=== PATIENT | female | born 1945 | race Caucasian/White ===

== ENCOUNTER → 2017-07-04 | Outpatient (CLI) | payer OTHER, MEDICARE | LOC: BHFA 08:30 | PROVIDERS: ATTEND Internal Medicine Interventional Cardiology | DX: R06.09 Other forms of dyspnea (principal); I10 Essential (primary) hypertension | CPT/HCPCS: 78452; 93017; A9500 ==

== ENCOUNTER 2017-09-25 01:50 | Emergency (ER) | payer OTHER, MEDICARE ==
[~2017-09-25 01:50] MED LIST: NS 2,000 ML IV ONE; ONDANSETRON 4 MG/2 ML VIAL IVP ONE
[2017-09-25] MEDS ORDERED: fentaNYL 100 MCG/2 ML INJ IVP ONE ×2 (02:15→02:45)
[2017-09-25] MEDS ORDERED: DICYCLOMINE 10 MG CAP PO ONE (03:45)
[2017-09-25] MEDS ORDERED: METOCLOPRAMIDE 10 MG/2 ML VIAL IVP ONE (03:45)
[2017-09-25] MEDS ORDERED: MAG HYDROX/AL HYDROX/SIMETH 30 ML UDCUP PO ONE (05:10)
--- NOTE | 2017-09-25 05:48 | EDPHY ---
H & P Stated Complaint: Upper abdominal pain with nausea Time Seen by Provider: 09/25/17 05:44 HPI/ROS: CHIEF COMPLAINT: Expanding abdominal pain with nausea. HISTORY OF PRESENT ILLNESS: This 72-year-old female certainly felt well at lunchtime and had no problems with respect to lunch or breakfast. However, around 5:00 p.m. she had dinner and did not eat as much as she usually might as she was beginning have some anorexia By 630 she started having some epigastric pain as well as notable nausea. Symptoms slowly escalated through the evening and into bedtim. She was unable to sleep. She came here be due to moderately severe abdominal discomfort of 8/10 located in the epigastrium that was spreading slowly to include her lower abdomen, right equals left. There is no back component to this. Her nausea was so profound that she actually took the a 12.5 mg p.o. dose of Phenergan she had left over from an illness 18 months ago , see below, though it did not help beyond making her sedated. The pain itself is diffuse, expanding, certainly not migrating, and sharp in nature, not pulsatile, nor radiating. Prior history of diverticulitis, perhaps: Approximately 18 months ago she came here to this clinic at the time and was seen for mild bilateral lower quadrant left greater than right abdominal pain and tenderness with a mild leukocytosis. Chart reviewed: As she had diverticulosis seen on prior colonoscopy the clinical diagnosis of diverticulitis was made and she was treated with a combination of Flagyl and Cipro. During that time she was nauseated and thus required Phenergan as due to side effects of the antibiotics. Of note, she did have an ultrasound of the lower pelvis approximately 3 weeks later as ordered by her family physician. She reports this was done as she had ongoing pain despite completing antibiotic therapy and she was worried of ovarian cancer due to the history of breast cancer in her mother and sister. Ultimately this ultrasound showed a normal left ovary, absent right ovary, and a status post hysterectomy. Evidently, it was explained to her that as she was postmenopausal it was not surprising that difficulty finding the right ovary. It had not been surgically removed per the patient's report No abdominal imaging history to speak of except for the above US of Pelvis. She is not known to have any gallstones or aortic aneurysms. She does carry the diagnosis of GERD which she takes daily medication. She notes this is not the similar symptoms. She states that with her GERD she has nausea for she has a backup Phenergan. She has been compliant with medications. No prior EGD. No other abdominal surgery, besides the hysterectomy. She arrives approximately 12:30 a.m. on September 25. On September 23 her son arrived home and was sick with a GI illness consisted of vomiting. However, as he lives in the basement she was unaware of any other symptomatology. She believes he was still somewhat symptomatic on the morning September 24 though evidently was improving. Her meal on the evening of the was left over from that of the September 23 which was check-in with pasta as provided by a shopping trip to [facility]. However, her son did not eat any of this meal REVIEW OF SYSTEMS: Constitutional: No fever, no chills. Eyes: No discharge ENT: No sore throat. Cardiovascular: No chest pain, no palpitations. Respiratory: No cough, shortness of breath, or wheezing. Gastrointestinal: Though nauseated she has not vomited. There has been no diarrhea Genitourinary: No hematuria or frequency. Musculoskeletal: No back pain. Skin: No rashes. Neurological: No headache. 10 point ROS otherwise negative Source: Patient Exam Limitations: No limitations - Medical/Surgical History Hx Asthma: No Hx Chronic Respiratory Disease: No Hx Diabetes: No Hx Cardiac Disease: No Hx Renal Disease: No Hx Cirrhosis: No Hx Alcoholism: No Hx HIV/AIDS: No Hx Splenectomy or Spleen Trauma: No Other PMH: hysterectomy, allergy to unknown item. LAst Allergic reaction that she had to use epi pen for was aprox 5 months ago. - Family History Significant Family History: No pertinent family hx - Social History Smoking Status: Former smoker Alcohol Use: None Drug Use: None - Physical Exam Exam: General Appearance: Alert, skin is warm dry and she is not diaphoretic with good eye contact. However she appears in moderate distress as she appears uncomfortable. Afebrile. Normal phonation. No respiratory distress. Eyes: Pupils equal and round no pallor or injection. No icterus ENT, Mouth: Mucous membranes slightly dry Pharynx without erythema or exudate. TM Clear. Neck: No adenopathy. Supple. No JVD. Trachea in midline. Respiratory: There are no retractions, lungs are clear to auscultation. Chest wall: Nontender to palpation. No crepitus. Cardiovascular: Regular rate and rhythm, without murmur. Abdomen: Soft nontender in the epigastrium hypogastrium however tender in the midline suprapubically in the right lower quadrant. There is no rebound or guarding however. No masses, bowel sounds normal. Femoral pulses equal. Neurological: Ox3. No motor weakness. Sensation intact. Gait nl. Skin: Warm and dry, no rashes. Musculoskeletal: No joint swelling. Extremities: No edema. Homans sign negative. No cords. Psychiatric: Normal affect. Patient is oriented X 3. There is no agitation Constitutional: Initial Vital Signs Temperature (C) 37 C 09/25/17 01:50 Heart Rate 113 H 09/25/17 01:50 Respiratory Rate 20 09/25/17 01:50 Blood Pressure 164/92 H 09/25/17 01:50 O2 Sat (%) 94 09/25/17 01:50 O2 Delivery Mode Room Air Allergies/Adverse Reactions: penicillin Allergy (Verified 09/25/17 05:40) lisinopril Allergy (Uncoded 09/25/17 05:40) other unknown but has EPI pen Allergy (Uncoded 09/25/17 05:40) Home Medications: Medication Instructions Recorded CALCIUM 03/06/16 Pantoprazole Sodium 03/06/16 Pravastatin Sodium 03/06/16 Triamterene-Hctz 37.5-25 mg Cp 03/06/16 Vit D3/Folic Acid/B2/B6/B12 03/06/16 Metoclopramide [Reglan 10 mg tab 10 mg PO ACHS PRN #8 tab 09/25/17 (*)] Medical Decision Making - Diagnostics EKG Interpretation: EKG: Interpreted by me contemporaneously. Rhythm: Normal sinus rhythm. Heart rate 95 QTc 448 QRS: normal STT segment: normal T Waves: Nonspecific changes laterally V3 through V6 Q waves none ache significant Q-waves in 3 Summary: Nonspecific changes laterally. Imaging Results: CT scan of Abdomen & Pelvis. Performed [with] IV contrast. Interpreted by radiologist. Films reviewed by me. Findings as follows: Distended stomach with enlarged gastric contents. Pyloric thickening versus spasm of wave of peristalsis through the pylorus, along with enlargement of the small bowel compatible with enteritis. No signs of focal blockage or obstruction. Diverticulosis without diverticulitis. Imaging: Discussed imaging studies w/ call or contact centre coach Radiologist ED Course/Re-evaluation: After initial evaluation IV was established for hydration purposes did in the view of volume depletion and she was given titrated doses of fentanyl 25 mcg for relief. After the initial EKG she was also given 8 mg of IV Zofran for nausea. Symptoms did improve but did come back recur necessitated additional fentanyl doses. Re-examination revealed a continued mild right lower quadrant tenderness and some suprapubic tenderness. Thus, arranges rain for a abdominal pelvis CT scan with IV contrast. Laboratory review: Mild leukocytosis Normal electrolytes normal kidney function Normal LFTs Normal lipase CT scan findings as noted above reviewed with patient. Plan was made for Reglan 10 mg IV as a prokinetic affect and for nausea along with Bentyl 20 mg p.o.. We will wait to see how things involved in the next 1-2 hours for consideration of hospitalization for GI rest with IV hydration verses possible GI consult. 0600 - markedly improved. Pain is gone. Had taken 15 cc of Maalox for GERD with relief. Nausea at [place]. Anxious to try things at home. Review with her the protocol of stomach rest next 12 hr, introducing clear liquids sparingly through the day full liquids this evening and advance the diet over the next 36 hrs. Differential Diagnosis: Differential diagnosis includes, but is not limited to: Gastroenteritis, dehydration, diverticulitis, pancreatitis, renal colic, kidney stones, cholecystitis, appendicitis, gastritis, mesenteric adenitis, food poisoning, bacterial dysentery. - Data Points Medications Given: Discontinued Medications Al Hydroxide/Mg Hydroxide (Maalox Susp) 30 ml PO EDNOW ONE Stop: 09/25/17 05:11 Last Admin: 09/25/17 05:10 Dose: Not Given Dicyclomine HCl (Bentyl) 30 mg PO EDNOW ONE Stop: 09/25/17 03:46 Last Admin: 09/25/17 03:45 Dose: Not Given Fentanyl (Sublimaze) 25 mcg IVP EDNOW ONE Stop: 09/25/17 02:16 Last Admin: 09/25/17 02:15 Dose: Not Given Fentanyl (Sublimaze) 25 mcg IVP EDNOW ONE Stop: 09/25/17 02:46 Last Admin: 09/25/17 05:53 Dose: Not Given Sodium Chloride (Ns) 2,000 mls @ 0 mls/hr IV EDNOW ONE; Wide Open PRN Reason: Protocol Stop: 09/25/17 01:51 Last Admin: 09/25/17 02:00 Dose: Not Given Metoclopramide HCl (Reglan Injection) 10 mg IVP EDNOW ONE Stop: 09/25/17 03:46 Last Admin: 09/25/17 03:45 Dose: Not Given Ondansetron HCl (Zofran) 8 mg IVP EDNOW ONE Stop: 09/25/17 01:51 Last Admin: 09/25/17 02:00 Dose: Not Given Departure - Departure Disposition: Home, Routine, Self-Care Clinical Impression: Gastroenteritis due to norovirus, Dehydration, moderate Abdominal pain Qualifiers: Abdominal location: lower abdomen, unspecified Qualified Code(s): R10.30 - Lower abdominal pain, unspecified Condition: Good Instructions: Dehydration (ED), Gastroenteritis (ED) Additional Instructions: Reglan for nausea. Do not take with her Phenergan For today clear liquids. This evening full liquids. Beginning tomorrow advanced her diet sequentially through soft foods to a full diet. No traveling, your contagious. Referrals: Patient,NotPresent [Primary Care Provider] - As per Instructions Stand Alone Forms: Airline Excuse Prescriptions: Metoclopramide [Reglan 10 mg tab (*)] 10 mg PO ACHS PRN #8 tab PRN Reason: Nausea and vomiting
[2017-09-25 06:17] VITALS: TEMP 99.9
[2017-09-25 06:51] VITALS: BP 144/64; PULSE 74; RESP 18; O2SAT 94
[2017-09-25 07:28] LABS: ALANINE AMINOTRANSFERASE 27 IU/L (9-52); ALBUMIN 4.3 g/dL (3.5-5.0); ALKALINE PHOSPHATASE 72 IU/L (38-126); ANION GAP 21 mEq/L (8-16); ASPARTATE AMINOTRANSFERASE 27 IU/L (14-46); BILIRUBIN,TOTAL 0.9 mg/dL (0.1-1.4); BILIRUBIN-CONJUGATED 0.3 mg/dL (0.0-0.5); BILIRUBIN-UNCONJUGATED 0.6 mg/dL (0.0-1.1); CALCIUM 9.4 mg/dL (8.5-10.4); CARBON DIOXIDE 24 mEq/l (22-31); CHLORIDE 102 mEq/L (97-110); CREATININE 0.9 mg/dL (0.6-1.0); GLOMERULAR FILTRATION RATE > 60; GLUCOSE 195 mg/dL (70-100); POTASSIUM 3.4 mEq/L (3.5-5.2); SODIUM 147 mEq/L (134-144); TOTAL PROTEIN 7.8 g/dL (6.3-8.2)
[2017-09-25 07:29] LABS: COLOR YELLOW; LEUKOCYTE ESTERASE,URINE NEGATIVE (NEGATIVE); NITRITE,URINE NEGATIVE (NEGATIVE)
[2017-09-25 07:30] LABS: % IMMATURE GRANULYOCYTES 0.4 % (0.0-1.1); ABSOLUTE IMMATURE GRANULOCYTES 0.05 10^3/uL (0.00-0.10); ADD DIFF? NO; ADD MORPH? NO; ADD SCAN? NO; ATYPICAL LYMPHOCYTE FLAG 0 (0-99); FRAGMENT RBC FLAG 0 (0-99); HEMOGLOBIN 13.5 g/dL (12.6-16.3); LEFT SHIFT FLG 0 (0-99); LIPEMIA HEMOLYSIS FLAG 80 (0-99); MEAN CELL HEMOGLOBIN 28.8 pg (27.9-34.1); MEAN CELL HEMOGLOBIN CONCENTR. 32.9 g/dL (32.4-36.7); MEAN CELL VOLUME 87.6 fL (81.5-99.8); MEAN PLATELET VOLUME 11.5 fL (8.7-11.7); PLATELET CLUMPS FLAG 0 (0-99); PLATELET COUNT 263 10^3/uL (150-400); RED BLOOD CELL COUNT 4.68 10^6/uL (4.18-5.33); RED CELL DISTRIBUTION WIDTH 13.6 % (11.5-15.2)
--- NOTE | 2017-09-25 08:22 | CPEKG ---
Heart Rate: 95 RR Interval: 632 P-R Interval: 184 QRSD Interval: 92 QT Interval: 356 QTC Interval: 448 P [place]: 65 QRS [place]: 59 T Wave [place]: 33 EKG Severity - NORMAL ECG - EKG Impression: SINUS RHYTHM Electronically Signed By: Kulwant Barbosa 27-Sep-2017 05:31:38
== END 2017-09-25 06:51 | disposition home or self-care (01) ==
LOC: CED 01:50
DX: A08.11 Acute gastroenteropathy due to Norwalk agent (principal); E86.0 Dehydration; Z90.710 Acquired absence of both cervix and uterus; Z87.891 Personal history of nicotine dependence
CPT/HCPCS: 74177-PO; 80048-PO; 80076-PO; 81003-PO; 83690-PO; 84100-PO; 85025-PO

== ENCOUNTER 2017-09-28 20:08 | Emergency (ER) | payer OTHER, MEDICARE ==
[2017-09-28] MEDS ORDERED: NS 1,000 ML IV ONE (20:44)
[2017-09-28] MEDS ORDERED: LORazepam 2 MG/ML INJ IVP ONE (20:44)
--- NOTE | 2017-09-28 20:48 | EDPHY ---
H & P Stated Complaint: abdominal pain Time Seen by Provider: 09/28/17 20:25 HPI/ROS: CHIEF COMPLAINT: Lower abdominal pain HISTORY OF PRESENT ILLNESS: Patient is a 72-year-old female who comes to the emergency department complaining of bilateral lower abdominal pain. She was seen at [facility] on Sunday with similar symptoms. She had a slightly elevated white blood cell count and a normal appearing CT scan and urinalysis. She felt better after nausea medication and antispasmodics. She states that she felt well on Sunday and other than not sleeping well. She advanced her diet gradually. Today she feels that the cramping has returned. It is primarily in the bilateral lower quadrants and suprapubic region. She denies urinary symptoms. She denies vaginal bleeding or discharge. She is postmenopausal. No fever. She has had diarrhea twice nonbloody. Her son was sick with similar symptoms on Sunday. His symptoms only lasted for 24 hr however. She states that she was told to come here and get a Dairy Frozen Manager to scope her if her symptoms returned. She has seen Dr Hernandez in the past fo r GERD. REVIEW OF SYSTEMS: Constitutional: denies: chills, fever, recent illness, recent injury EENTM: denies: blurred vision, double vision, nose congestion Respiratory: denies: cough, shortness of breath Cardiac: denies: chest pain, irregular heart rate, lightheadedness, palpitations Gastrointestinal/Abdominal: denies: abdominal pain, diarrhea, nausea, vomiting, blood streaked stools Genitourinary: denies: dysuria, frequency, hematuria, pain Musculoskeletal: denies: joint pain, muscle pain Skin: denies: lesions, rash, jaundice, bruising Neurological: denies: headache, numbness, paresthesia, tingling, dizziness, weakness Hematologic/Lymphatic: denies: blood clots, easy bleeding, easy bruising Immunologic/allergic: denies: HIV/AIDS, transplant EXAM: GENERAL: Well-appearing, well-nourished and in no acute distress. HEAD: Atraumatic, normocephalic. EYES: Pupils equal round and reactive to light, extraocular movements intact, sclera anicteric, conjunctiva are normal. ENT: TMs normal, nares patent, oropharynx clear without exudates. Moist mucous membranes. NECK: Normal range of motion, supple without lymphadenopathy or JVD. LUNGS: Breath sounds clear to auscultation bilaterally and equal. No wheezes rales or rhonchi. HEART: Regular rate and rhythm without murmurs, rubs or gallops. ABDOMEN: Soft, nontender, normoactive bowel sounds. No guarding, no rebound. No masses appreciated. BACK: No CVA tenderness, no spinal tenderness, step-offs or deformities EXTREMITIES: Normal range of motion, no pitting or edema. No clubbing or cyanosis. NEUROLOGICAL: Cranial nerves II through XII grossly intact. Normal speech, normal gait. 5/5 strength, normal movement in all extremities, normal sensation PSYCH: Normal mood, normal affect. SKIN: Warm, dry, normal turgor, no visible rashes or lesions. Source: Patient Exam Limitations: No limitations - Personal History Current Tetanus/Diphtheria Vaccine: Yes Current Tetanus Diphtheria and Acellular Pertussis (TDAP): Yes - Medical/Surgical History Hx Asthma: No Hx Chronic Respiratory Disease: No Hx Diabetes: No Hx Cardiac Disease: No Hx Renal Disease: No Hx Cirrhosis: No Hx Alcoholism: No Hx HIV/AIDS: No Hx Splenectomy or Spleen Trauma: No Other PMH: hysterectomy, allergy to unknown item. LAst Allergic reaction that she had to use epi pen for was aprox 5 months ago. - Family History Significant Family History: No pertinent family hx - Social History Smoking Status: Former smoker Alcohol Use: Sober Drug Use: None Constitutional: Initial Vital Signs Temperature (C) 37.2 C 09/28/17 20:10 Heart Rate 78 09/28/17 20:10 Respiratory Rate 18 09/28/17 20:10 Blood Pressure 195/79 H 09/28/17 20:10 O2 Sat (%) 95 09/28/17 20:10 Allergies/Adverse Reactions: penicillin Allergy (Verified 09/25/17 05:40) lisinopril Allergy (Uncoded 09/25/17 05:40) other unknown but has EPI pen Allergy (Uncoded 09/25/17 05:40) Home Medications: Medication Instructions Recorded CALCIUM 03/06/16 Pantoprazole Sodium 03/06/16 Pravastatin Sodium 03/06/16 Triamterene-Hctz 37.5-25 mg Cp 03/06/16 Vit D3/Folic Acid/B2/B6/B12 03/06/16 Metoclopramide [Reglan 10 mg tab 10 mg PO ACHS PRN #8 tab 09/25/17 (*)] Moxifloxacin [Avelox 400 mg (*)] 400 mg PO DAILY #10 tab 09/28/17 Ondansetron Odt [Zofran Odt 4 mg 4 mg PO Q4 PRN #20 tab 09/28/17 (RX)] Medical Decision Making - Diagnostics EKG Interpretation: An EKG obtained and was read and documented in trace view. Please see trace view for full reading and report. Sinus rhythm, no acute ischemic changes Imaging: Discussed imaging studies w/ kraft digester operator Radiologist ED Course/Re-evaluation: The patient has diverticulitis. She states that the Flagyl made her extremely ill year ago when she took it for diverticulitis. She states that she is allergic to penicillin all does not remember exactly what her allergy was not was as a child. We discussed possibly penicillin trial to test for sensitivities however eventually agreed with the 3rd option of treatment which is single agent moxifloxacin. I will provider anti nausea medication to take if needed. I also performed a rectal examination because her hematocrit is lower than it was a few days ago. It is nonbloody. She denies any source bleeding. Differential Diagnosis: Partial list of the Differential diagnosis considered include but were not limited to; gastritis, diverticulitis, appendicitis, and although unlikely based on the history and physical exam, I also considered peptic ulcer disease, obstruction, ischemia. I discussed these differential diagnoses and the plan with the patient as well as the usual and expected course. The patient understands that the diagnosis is provisional and that in medicine we are not always correct and that further workup is often warranted. Usual and customary warnings were given. All of the patient's questions were answered. The patient was instructed to return to the emergency department should the symptoms at all worsen or return, otherwise to followup with the physician as we discussed. - Data Points Laboratory Results: Laboratory Results 09/28/17 21:11 09/28/17 21:11 09/28/17 09/28/17 09/28/17 22:10 21:11 21:11 WBC RBC Hgb Hct MCV MCH MCHC RDW Plt Count MPV Neut % (Auto) Lymph % (Auto) [place] % (Auto) Eos % (Auto) Baso % (Auto) Nucleat RBC Rel Count Absolute Neuts (auto) Absolute Lymphs (auto) Absolute Monos (auto) Absolute Eos (auto) Absolute Basos (auto) Absolute Nucleated RBC Immature Gran % Immature Gran # Sodium 144 mEq/L mEq/L (134-144) Potassium 3.0 mEq/L L mEq/L (3.5-5.2) Chloride 104 mEq/L mEq/L (97-110) Carbon Dioxide 26 mEq/l mEq/l (22-31) Anion Gap 14 mEq/L mEq/L (8-16) BUN 13 mg/dL mg/dL (7-23) Creatinine 0.9 mg/dL mg/dL (0.6-1.0) Estimated GFR > 60 Glucose 99 mg/dL mg/dL (70-100) Calcium 9.7 mg/dL mg/dL (8.5-10.4) Total Bilirubin 1.0 mg/dL mg/dL (0.1-1.4) Conjugated Bilirubin 0.3 mg/dL mg/dL (0.0-0.5) Unconjugated Bilirubin 0.7 mg/dL mg/dL (0.0-1.1) AST 28 IU/L IU/L (14-46) ALT 34 IU/L IU/L (9-52) Alkaline Phosphatase 69 IU/L IU/L (38-126) Total Protein 7.1 g/dL g/dL (6.3-8.2) Albumin 3.9 g/dL g/dL (3.5-5.0) Lipase 104 IU/L IU/L (23-300) Urine Color YELLOW Urine Appearance CLEAR Urine pH 7.0 (5.0-7.5) Ur Specific [place] 1.009 (1.002-1.030) Urine Protein NEGATIVE (NEGATIVE) Urine Ketones 1+ H (NEGATIVE) Urine Blood NEGATIVE (NEGATIVE) Urine Nitrate NEGATIVE (NEGATIVE) Urine Bilirubin NEGATIVE (NEGATIVE) Urine Urobilinogen NEGATIVE EU EU (0.2-1.0) Ur Leukocyte Esterase NEGATIVE (NEGATIVE) Urine RBC 3-5 /hpf H /hpf (0-3) Urine WBC NONE SEEN /hpf /hpf (0-3) Ur Epithelial Cells TRACE /lpf /lpf (NONE-1+) Hyaline Casts 1-5 /lpf /lpf (0-1) Urine Glucose NEGATIVE (NEGATIVE) Stool Occult Bld Scrn NEGATIVE (NEGATIVE) 09/28/17 21:11 WBC 8.11 10^3/uL 10^3/uL (3.80-9.50) RBC 4.12 10^6/uL L 10^6/uL (4.18-5.33) Hgb 12.2 g/dL L g/dL (12.6-16.3) Hct 36.2 % L % (38.0-47.0) MCV 87.9 fL fL (81.5-99.8) MCH 29.6 pg pg (27.9-34.1) MCHC 33.7 g/dL g/dL (32.4-36.7) RDW 13.2 % % (11.5-15.2) Plt Count 263 10^3/uL 10^3/uL (150-400) MPV 10.6 fL fL (8.7-11.7) Neut % (Auto) 72.9 % % (39.3-74.2) Lymph % (Auto) 18.0 % % (15.0-45.0) [place] % (Auto) 6.0 % % (4.5-13.0) Eos % (Auto) 2.7 % % (0.6-7.6) Baso % (Auto) 0.2 % L % (0.3-1.7) Nucleat RBC Rel Count 0.0 % % (0.0-0.2) Absolute Neuts (auto) 5.90 10^3/uL 10^3/uL (1.70-6.50) Absolute Lymphs (auto) 1.46 10^3/uL 10^3/uL (1.00-3.00) Absolute Monos (auto) 0.49 10^3/uL 10^3/uL (0.30-0.80) Absolute Eos (auto) 0.22 10^3/uL 10^3/uL (0.03-0.40) Absolute Basos (auto) 0.02 10^3/uL 10^3/uL (0.02-0.10) Absolute Nucleated RBC 0.00 10^3/uL 10^3/uL (0-0.01) Immature Gran % 0.2 % % (0.0-1.1) Immature Gran # 0.02 10^3/uL 10^3/uL (0.00-0.10) Sodium Potassium Chloride Carbon Dioxide Anion Gap BUN Creatinine Estimated GFR Glucose Calcium Total Bilirubin Conjugated Bilirubin Unconjugated Bilirubin AST ALT Alkaline Phosphatase Total Protein Albumin Lipase Urine Color Urine Appearance Urine pH Ur Specific [place] Urine Protein Urine Ketones Urine Blood Urine Nitrate Urine Bilirubin Urine Urobilinogen Ur Leukocyte Esterase Urine RBC Urine WBC Ur Epithelial Cells Hyaline Casts Urine Glucose Stool Occult Bld Scrn Medications Given: Discontinued Medications Sodium Chloride (Ns) 1,000 mls @ 0 mls/hr IV EDNOW ONE; Wide Open PRN Reason: Protocol Stop: 09/28/17 20:45 Last Admin: 09/28/17 21:07 Dose: 1,000 mls Lorazepam (Ativan Injection) 0.5 mg IVP EDNOW ONE Stop: 09/28/17 20:45 Last Admin: 09/28/17 21:07 Dose: 0.5 mg Potassium Chloride (Klor-Con) 40 meq PO EDNOW ONE Stop: 09/28/17 21:34 Last Admin: 09/28/17 22:02 Dose: 40 meq Departure - Departure Disposition: Home, Routine, Self-Care Clinical Impression: Diverticulitis large intestine Condition: Fair Instructions: Diverticulitis (ED) Referrals: Priyanka Marino MD [Primary Care Provider] - As per Instructions Prescriptions: Moxifloxacin [Avelox 400 mg (*)] 400 mg PO DAILY #10 tab Ondansetron Odt [Zofran Odt 4 mg (RX)] 4 mg PO Q4 PRN #20 tab PRN Reason: Nausea & Vomiting
[2017-09-28 21:21] LABS: PLATELET COUNT 263 10^3/uL (150-400)
--- NOTE | 2017-09-28 21:23 | CPEKG ---
Heart Rate: 60 RR Interval: 1000 P-R Interval: 200 QRSD Interval: 92 QT Interval: 436 QTC Interval: 436 P [place]: 71 QRS [place]: 59 T Wave [place]: 31 EKG Severity - NORMAL ECG - EKG Impression: SINUS RHYTHM Electronically Signed By: Javy Garcia 28-Sep-2017 21:33:20
[2017-09-28] MEDS ORDERED: POTASSIUM CL 20 MEQ TAB PO ONE (21:33)
[2017-09-28] MEDS ORDERED: POTASSIUM Cl (KCl) 100 ML IV ONE (21:33)
[2017-09-28] MEDS ORDERED: IOPAMIDOL (ISOVUE-300) 100 ML BTL ONE (21:37)
[2017-09-28] MEDS ORDERED: POTASSIUM Cl (KCl) 10 MEQ in NS 100 ML IV ONE (22:15)
[2017-09-28] MEDS ORDERED: MOXIFLOXACIN 400 MG TAB PO SCH (22:30)
[2017-09-28 23:49] VITALS: BP 168/79; PULSE 66; RESP 16; TEMP 98.6; O2SAT 91
== END 2017-09-28 23:47 | disposition home or self-care (01) ==
DX: K57.32 Diverticulitis of large intestine without perforation or abscess without bleeding (principal); E86.9 Volume depletion, unspecified; Z87.891 Personal history of nicotine dependence; Z90.710 Acquired absence of both cervix and uterus
CPT/HCPCS: 74177; 93005; 96361; 96374; 99285; J2060; Q9967

== ENCOUNTER 2017-10-27 07:00 | Emergency (ER) | payer OTHER, MEDICARE ==
[2017-10-27 07:08] VITALS: RESP 16; TEMP 98.2
--- NOTE | 2017-10-27 07:17 | EDPHY ---
H & P Stated Complaint: bilat lower abd pain and nausea x 1 day, denies urinary complaints Time Seen by Provider: 10/27/17 07:13 - Personal History Current Tetanus/Diphtheria Vaccine: Unsure Current Tetanus Diphtheria and Acellular Pertussis (TDAP): Unsure - Medical/Surgical History Hx Asthma: No Hx Chronic Respiratory Disease: No Hx Diabetes: No Hx Cardiac Disease: No Hx Renal Disease: No Hx Cirrhosis: No Hx Alcoholism: No Hx HIV/AIDS: No Hx Splenectomy or Spleen Trauma: No Other PMH: hysterectomy, diverticulitus - Social History Smoking Status: Former smoker Constitutional: Initial Vital Signs Temperature (C) 36.8 C 10/27/17 07:06 Heart Rate 68 10/27/17 07:06 Respiratory Rate 16 10/27/17 07:06 Blood Pressure 123/56 H 10/27/17 07:06 O2 Sat (%) 97 10/27/17 07:06 O2 Delivery Mode Room Air Allergies/Adverse Reactions: penicillin Allergy (Verified 09/25/17 05:40) lisinopril Allergy (Uncoded 09/25/17 05:40) other unknown but has EPI pen Allergy (Uncoded 09/25/17 05:40) Home Medications: Medication Instructions Recorded Aspirin 81mg (*) 10/27/17 Clindamycin HCl [Clindamycin] 300 mg PO TID #30 cap 10/27/17 Ondansetron Odt [Zofran Odt 4 mg 4 mg PO Q4 PRN #10 tab 10/27/17 (RX)] Pravastatin Sodium 10/27/17 Reglan 10/27/17 Triamterene 10/27/17 Zofran 10/27/17 levOFLOXACIN [levAQUIN 750 MG (RX)] 750 mg PO DAILY #10 tab 10/27/17 Medical Decision Making - Diagnostics Imaging Results: Imaging Impressions Abdomen CT 10/27/17 07:50 Impression: 1. Interval resolution of CT features of acute diverticulitis within the sigmoid colonic region from previous study. Underlying diverticulosis. 2. Normal CT appearance of the appendix. 3. Cystic lesions within both kidneys, similar in appearance to prior study. Results called to Dr. Espana at 9:30 a.m. Imaging: Discussed imaging studies w/ spa manager Radiologist, I viewed and interpreted images myself ED Course/Re-evaluation: CHIEF COMPLAINT: Abdominal pain, nausea HISTORY OF PRESENT ILLNESS: The patient is a 72 y/o female with a history of diverticulitis arriving with her complaining of abdominal pain and nausea onset yesterday. She had the same symptoms in September and went to the ED twice and was diagnosed with diverticulitis on CT. She completed an 8-day course of levofloxacin and her symptoms improved completely for almost a month. Yesterday she began to feel nauseated and then developed lower abdominal pain that is worse on right. These symptoms feel the same as before, but are not yet as severe. She denies fever, vomiting, cough, chest pain, dyspnea. Her only abdominal history was a hysterectomy. REVIEW OF SYSTEMS: A 10 point review of systems was performed and is negative with the exception of the elements mentioned in the history of present illness. PHYSICAL EXAM: HR, BP, O2 Sat, RR. Temp noted General Appearance: Alert, well hydrated, appropriate, and non-toxic appearing. Head: Atraumatic without scalp tenderness or obvious injury Eyes: Pupils equal, round, reactive to light and accommodation, EOMI, no trauma , no injection. Nose: Atraumatic, no rhinorrhea, clear. Throat: Mucus membranes moist. Neck: Supple Respiratory: No retractions, no distress, no wheezes, and no accessory muscle use. Lungs are clear to auscultation bilaterally. Cardiovascular: Regular rate and rhythm, no murmurs, rubs, or gallops. Good capillary refill all extremities. Gastrointestinal: Abdomen is soft, lower quadrant tenderness worse in RLQ, non- distended, no masses, no rebound, no guarding, no peritoneal signs. Musculoskeletal: Normal active ROM of all extremities, atraumatic. Neurological: Alert, appropriate, and interactive. The patient has non-focal cranial nerves, motor, sensory, and cerebellar exam. Skin: No rashes, good turgor, no nodules on palpation. Past medical history: Diverticulitis, unknown allergy with an EpiPen Past surgical history: Hysterectomy Family history: Noncontributory Social history: at bedside. Lives in [place]. Retired. GI: Dr. Hernandez. Prior medical records reviewed including ED visit 09/28/17 for diverticulitis. DIAGNOSTICS/PROCEDURES/CRITICAL CARE TIME: Abdominal CT: No acute diverticulitis with improvement of prior diverticulitis. Normal appendix. DIFFERENTIAL DIAGNOSIS: The differential diagnosis for the patient's abdominal pain included but was not limited to ovarian cyst, pelvic inflammatory disease, ovarian torsion, urinary tract infection, ectopic , cholecystitis, and appendicitis. MEDICAL DECISION MAKING: This is a 72 y/o female with history of diverticulitis presenting with a 1-day history of lower abdominal pain and nausea. She has lower quadrant tenderness worse in the RLQ. She is hemodynamically stable. Plan for IV, labs, abdominal CT , and symptom management. 1L IV NS, 1mg IV Dilaudid, and 4mg IV Zofran administered. Reassessed patient and discussed imaging results, which are negative for acute process. She is much more comfortable after medications. I am concerned she has early diverticulitis since her presentation is so similar to her last episode in September, which didn't show up on the first CT. Due to this, I've recommended treating empirically with antibiotics. She had previous side effects with Flagyl and has a penicillin allergy. The levofloxacin worked well in September. She will be discharged home with scripts for Levaquin and Zofran and referral to her GI for follow up next week. Return precautions discussed. She is comfortable with this plan. Patient began feeling weak and nauseated at discharge. She received 1mg Dilaudid here and hasn't eaten in about 24 hours. Will administered 1gm IV Ertapenem here with PO food and fluids then reevaluate for discharge. - Data Points Laboratory Results: Laboratory Results 10/27/17 07:55 10/27/17 07:55 10/27/17 10/27/17 10/27/17 07:55 07:55 07:49 WBC 8.33 10^3/uL 10^3/uL (3.80-9.50) RBC 4.32 10^6/uL 10^6/uL (4.18-5.33) Hgb 12.8 g/dL g/dL (12.6-16.3) POC Hgb 13.3 gm/dL gm/dL (12.6-16.3) Hct 38.0 % % (38.0-47.0) POC Hct 39 % % (38-47) MCV 88.0 fL fL (81.5-99.8) MCH 29.6 pg pg (27.9-34.1) MCHC 33.7 g/dL g/dL (32.4-36.7) RDW 13.3 % % (11.5-15.2) Plt Count 200 10^3/uL 10^3/uL (150-400) MPV 11.4 fL fL (8.7-11.7) Neut % (Auto) 72.0 % % (39.3-74.2) Lymph % (Auto) 17.4 % % (15.0-45.0) Camp % (Auto) 4.8 % % (4.5-13.0) Eos % (Auto) 5.2 % % (0.6-7.6) Baso % (Auto) 0.2 % L % (0.3-1.7) Nucleat RBC Rel Count 0.0 % % (0.0-0.2) Absolute Neuts (auto) 6.00 10^3/uL 10^3/uL (1.70-6.50) Absolute Lymphs (auto) 1.45 10^3/uL 10^3/uL (1.00-3.00) Absolute Monos (auto) 0.40 10^3/uL 10^3/uL (0.30-0.80) Absolute Eos (auto) 0.43 10^3/uL H 10^3/uL (0.03-0.40) Absolute Basos (auto) 0.02 10^3/uL 10^3/uL (0.02-0.10) Absolute Nucleated RBC 0.00 10^3/uL 10^3/uL (0-0.01) Immature Gran % 0.4 % % (0.0-1.1) Immature Gran # 0.03 10^3/uL 10^3/uL (0.00-0.10) POC Sodium 143 mEq/L mEq/L (135-145) Sodium 145 mEq/L mEq/L (135-145) POC Potassium 3.0 mEq/L L mEq/L (3.3-5.0) Potassium 3.3 mEq/L L mEq/L (3.5-5.2) POC Chloride 99 mEq/L mEq/L (97-110) Chloride 101 mEq/L mEq/L (97-110) Carbon Dioxide 29 mEq/l mEq/l (22-31) Anion Gap 15 mEq/L mEq/L (8-16) POC BUN 17 mg/dL mg/dL (7-23) BUN 17 mg/dL mg/dL (7-23) Creatinine 1.0 mg/dL mg/dL (0.6-1.0) POC Creatinine 1.1 mg/dL H mg/dL (0.6-1.0) Estimated GFR 55 Glucose 114 mg/dL H mg/dL (70-100) POC Glucose 116 mg/dL H mg/dL (70-100) Calcium 10.1 mg/dL mg/dL (8.5-10.4) Total Bilirubin 0.8 mg/dL mg/dL (0.1-1.4) Conjugated Bilirubin 0.3 mg/dL mg/dL (0.0-0.5) Unconjugated Bilirubin 0.5 mg/dL mg/dL (0.0-1.1) AST 24 IU/L IU/L (14-46) ALT 31 IU/L IU/L (9-52) Alkaline Phosphatase 75 IU/L IU/L (38-126) Total Protein 7.7 g/dL g/dL (6.3-8.2) Albumin 4.4 g/dL g/dL (3.5-5.0) Lipase 118 IU/L IU/L (23-300) Medications Given: Discontinued Medications Hydromorphone HCl (Dilaudid) 1 mg IVP EDNOW ONE Stop: 10/27/17 07:51 Last Admin: 10/27/17 08:03 Dose: 1 mg Sodium Chloride (Ns) 1,000 mls @ 0 mls/hr IV EDNOW ONE; Wide Open PRN Reason: Protocol Stop: 10/27/17 07:51 Last Admin: 10/27/17 08:04 Dose: 1,000 mls Ondansetron HCl (Zofran) 4 mg IVP EDNOW ONE Stop: 10/27/17 07:51 Last Admin: 10/27/17 08:04 Dose: 4 mg Point of Care Test Results: 10/27/17 07:49 POC Sodium 143 POC Potassium 3.0 L POC Chloride 99 POC BUN 17 POC Creatinine 1.1 H POC Glucose 116 H Departure - Departure Disposition: Home, Routine, Self-Care Clinical Impression: Diverticulitis large intestine Qualifiers: Diverticulitis bleeding: unspecified bleeding status Diverticulitis complication: without perforation or abscess Qualified Code(s): K57.32 - Diverticulitis of large intestine without perforation or abscess without bleeding Condition: Good Instructions: Levofloxacin (By mouth), Diverticulitis (ED) Additional Instructions: 1. Take Levaquin as prescribed. Be sure to complete entire prescription. 2. Use Zofran as prescribed when needed for nausea and vomiting. 3. Increase fluid intake. 4. Follow up with your GI doctor next week. 5. Return to the ED for worsening of condition. Referrals: Priyanka Marino MD [Primary Care Provider] - As per Instructions Mahesh Hernandez MD [Medical Doctor] - As per Instructions Prescriptions: Clindamycin HCl [Clindamycin] 300 mg PO TID #30 cap levOFLOXACIN [levAQUIN 750 MG (RX)] 750 mg PO DAILY #10 tab Ondansetron Odt [Zofran Odt 4 mg (RX)] 4 mg PO Q4 PRN #10 tab PRN Reason: Nausea/Vomiting, Use 1st Report Scribed for: Lev Espana Report Scribed by: Dulce García Date of Report: 10/27/17 Time of Report: 07:41
[2017-10-27] MEDS ORDERED: ONDANSETRON 4 MG/2 ML VIAL IVP ONE ×2 (07:50→10:51)
[2017-10-27] MEDS ORDERED: HYDROmorphONE/DILAUDID 1 MG/ML INJ IVP ONE (07:50)
[2017-10-27] MEDS ORDERED: NS 1,000 ML IV ONE (07:50)
[2017-10-27 08:03] LABS: PLATELET COUNT 200 10^3/uL (150-400)
[2017-10-27] MEDS ORDERED: IOPAMIDOL (ISOVUE-300) 100 ML BTL ONE (08:30)
[2017-10-27] MEDS ORDERED: ERTAPENEM 1 GM VIAL IVP ONE (10:50)
[2017-10-27] MEDS ORDERED: ONDANSETRON 4 MG/2 ML VIAL ONE (10:50)
[2017-10-27 12:49] VITALS: BP 148/62; PULSE 71; O2SAT 96
== END 2017-10-27 12:46 | disposition home or self-care (01) ==
DX: K57.32 Diverticulitis of large intestine without perforation or abscess without bleeding (principal); E86.9 Volume depletion, unspecified; Z79.82 Long term (current) use of aspirin; Z87.891 Personal history of nicotine dependence; Z90.710 Acquired absence of both cervix and uterus
CPT/HCPCS: 74177; 96374; 96375; 96376; 99285; J1170; J1335; J2405; Q9967; 82947-QW